=== PATIENT | female | born 1970 | race Caucasian/White ===

== ENCOUNTER 2022-08-30 11:58 | Day surgery (SDC) | payer BC ==
[2022-08-23 14:09] VITALS: BMI 24.2
[2022-08-30 14:02] VITALS: PULSE 72; RESP 18; TEMP 97.8
[2022-08-30 14:16] VITALS: BP 120/56
== END 2022-08-30 14:37 | disposition home or self-care (01) ==
LOC: FASU-ENDO 11:58
PROVIDERS: ATTEND Internal Medicine Gastroenterology
PROC: 0DBL8ZX Excision of Transverse Colon, Via Natural or Artificial Opening Endoscopic, Diagnostic (ICD-10-PCS; principal; 2022-08-30 13:33)
DX: Z12.11 Encounter for screening for malignant neoplasm of colon (principal); D12.3 Benign neoplasm of transverse colon; K64.1 Second degree hemorrhoids; K64.8 Other hemorrhoids
CPT/HCPCS: 81025; 88305-TC